=== PATIENT | male | born 1985 | race Caucasian/White ===

== ENCOUNTER 2023-07-08 20:38 | Emergency (ER) | payer SELFPAY | END 2023-07-08 22:17 | disposition home or self-care (01) | LOC: CSHERS 20:38 | DX: R07.89 Other chest pain (principal) | CPT/HCPCS: 71045; 93005 ==

== ENCOUNTER 2025-05-08 16:21 | Emergency (ER) | payer BC, OTHER ==
[2025-05-08] MEDS ORDERED: Ketorolac Tromethamine 30 MG (1 mL) VIAL ONE (17:05)
== END 2025-05-08 17:25 | disposition home or self-care (01) ==
LOC: CSHERS 16:21
DX: S46.811A Strain of other muscles, fascia and tendons at shoulder and upper arm level, right arm, initial encounter (principal); V59.9XXA Occupant (driver) (passenger) of pick-up truck or van injured in unspecified traffic accident, initial encounter
CPT/HCPCS: 96372; 99283; J1885